=== PATIENT | male | born 1975 | race Two or more races ===

== ENCOUNTER 2021-04-24 13:34 | Outpatient (REF) | payer OTHER, SELFPAY ==
--- NOTE | ~2021-04-24 | XR_ITS ---
EXAMINATION: XR FOOT, RIGHT CLINICAL INFORMATION: Pain of toes. COMPARISON: None TECHNIQUE: AP, lateral, and oblique views of the right foot. FINDINGS: The bones and soft tissues are normal. No fracture. Alignment is anatomic. Joint spaces are maintained. XR/XR foot RT min 3V IMPRESSION: Normal right foot.
== END 2021-04-24 13:35 | disposition home or self-care (01) ==
LOC: HO.XRAY 13:34
PROVIDERS: Absent Provider Family Medicine; PCP Family Medicine; Visit Provider Emergency Medicine
DX: M79.674 Pain in right toe(s) (principal)
CPT/HCPCS: 73630

== ENCOUNTER → 2021-06-01 12:47 | Outpatient (BNVA) | payer OTHER, SELFPAY | PROVIDERS: PCP Family Medicine; Visit Provider Physician Assistant | DX: S61.214A Laceration without foreign body of right ring finger without damage to nail, initial encounter (principal); W25.XXXA Contact with sharp glass, initial encounter; Z77.21 Contact with and (suspected) exposure to potentially hazardous body fluids | CPT/HCPCS: 36415; 84450; 84460; 86706; 86803; 87389; 99213 ==

== ENCOUNTER 2021-12-19 13:00 | Outpatient (RCR) | payer OTHER, SELFPAY | END 2022-03-29 14:08 | disposition home or self-care (01) | LOC: HO.PTCHIC 13:00 | PROVIDERS: PCP Family Medicine; Visit Provider Emergency Medicine | DX: M54.50 Low back pain, unspecified (principal) | CPT/HCPCS: 97014; 97110; 97140; 97161 ==

== ENCOUNTER 2022-04-22 13:09 | Outpatient (REF) | payer OTHER, SELFPAY ==
--- NOTE | ~2022-04-22 | XR_ITS ---
EXAMINATION: XR HIP, RIGHT CLINICAL INFORMATION: Right hip pain COMPARISON: None TECHNIQUE: Two views of the right hip. FINDINGS: Bones and soft tissues are normal. No fracture. Alignment is anatomic. Hip joint space is maintained. XR/XR hip RT w PEL1V IMPRESSION: Normal right hip.
== END 2022-04-22 13:10 | disposition home or self-care (01) ==
LOC: HO.XRAY 13:09
PROVIDERS: PCP Family Medicine; Visit Provider Student in an Organized Health Care Education/Training Program
DX: M25.551 Pain in right hip (principal)
CPT/HCPCS: 73502

== ENCOUNTER 2024-04-28 20:21 | Emergency (ER) | payer SELFPAY ==
--- NOTE | ~2024-04-28 | US_ITS ---
EXAMINATION: US TRIPLEX LOWER EXTREMITY, LEFT CLINICAL INFORMATION: Left leg swelling COMPARISON: None available. TECHNIQUE: Color-flow triplex imaging with spectral analysis and compression Doppler were performed on the left lower extremity. FINDINGS: Respiratory variation, normal compression and augmented flow are noted throughout the left lower extremity. The visualized common femoral vein, superficial femoral vein, profunda femoral vein, popliteal vein and midcalf peroneal and posterior tibial venous segments show no evidence of deep venous thrombosis. There is no Garcia's cyst. Prominent inguinal lymph nodes. US/US venous duplex LE LT IMPRESSION: No evidence of deep venous thrombosis involving the left lower extremity. Electronically signed by: Michelle Reveles MD 04/28/2024 09:11 PM EDT
--- NOTE | ~2024-04-28 | XR_ITS ---
EXAMINATION: XR FOOT, LEFT X-ray tibia and fibula, left CLINICAL INFORMATION: Redness/swelling COMPARISON: None available. TECHNIQUE: AP, lateral, and oblique views of the left foot. 2 views of the left tibia and fibula FINDINGS: Well-corticated ossific fragments along the medial malleolus likely sequela of prior trauma. Ankle mortise is intact. No fracture. Alignment is anatomic. Joint spaces are maintained. Spurring in the patella. XR/XR tibia fibula LT 2V IMPRESSION: 1. No acute fracture. 2. Well-corticated ossific fragments along the medial malleolus likely sequela of prior trauma. Electronically signed by: Pa Paniagua MD 04/28/2024 10:30 PM EDT
--- NOTE | ~2024-04-28 | XR_ITS ---
EXAMINATION: XR FOOT, LEFT X-ray tibia and fibula, left CLINICAL INFORMATION: Redness/swelling COMPARISON: None available. TECHNIQUE: AP, lateral, and oblique views of the left foot. 2 views of the left tibia and fibula FINDINGS: Well-corticated ossific fragments along the medial malleolus likely sequela of prior trauma. Ankle mortise is intact. No fracture. Alignment is anatomic. Joint spaces are maintained. Spurring in the patella. XR/XR foot LT min 3V IMPRESSION: 1. No acute fracture. 2. Well-corticated ossific fragments along the medial malleolus likely sequela of prior trauma. Electronically signed by: Pa Paniagua MD 04/28/2024 10:30 PM EDT
[2024-04-28 20:26] VITALS: BP 139/76; PULSE 66; RESP 16; TEMP 36.8; O2SAT 99; BMI 32.3
--- NOTE | 2024-04-28 20:30 | ED_ITS ---
HPI - General Adult General Chief complaint: Extremity Injury, Lower Stated complaint: L leg pain Time Seen by Provider: 04/29/24 03:08 Source: patient and family Mode of arrival: ambulatory Limitations: no limitations History of Present Illness ED Provider: Dr. Griffith HPI narrative: Patient with 1 week of increasing leg pain and swelling. He denies trauma or fever. States that the leg is getting more and more red. Onset (ago): week(s) Related Data Previous Rx's ?Medication ?Instructions ?Recorded cephalexin 500 mg capsule 500 mg PO Q6H 10 days #40 caps 04/29/24 naproxen 500 mg tablet (Naprosyn) 500 mg PO BID #20 tabs 04/29/24 Allergies Allergy/AdvReac Type Severity Reaction Status Date / Time omeprazole [OMEPRAZOLE] AdvReac Intermediate GI PAIN, Verified 04/28/24 20:29 stomach pain Review of Systems 2 Review of Systems: Yes all other systems are reviewed and are negative Neurologic: Denies Sensory deficit (Neuro) [facility] Past Medical History Medical History No known health problems No known health problems No known health problems Social History Social History Alcohol intake: never Smoked in Last 30 Days: No Use of substances other than those prescribed or required for medical reasons: No Any prior treatment program specific to substance use: No Advance Directives: No Advance Directives Information Provided: No Do you have a plan to hurt others: No Plan Physical Exam ED Vital Signs: Vital Signs - 24 hr 04/28/24 20:26 04/29/24 03:03 04/29/24 03:52 Temperature 98.3 F 97.9 F 97.9 F Pulse Rate 66 69 69 Respiratory Rate 16 16 16 Blood Pressure 139/76 137/83 137/83 Pulse Oximetry 99 98 98 Oxygen Delivery Method Room Air Room Air Room Air BMI result Body Mass Index 32.3 Const General: healthy appearing Nutritional Appearance: average body habitus Orientation/consciousness: oriented to person and patient oriented x3 Limitations: no limitations HENMT Head: Yes normal to inspection Ears: external ears normal General nose exam: Normal external nose present Mouth: Normal oral and palatal mucosa present and oropharynx normal Throat: Yes posterior oropharynx normal Eyes General: appearance normal, both eyes and all related structures Neck Neck: Yes normal visual inspection Chest Chest palpation & inspection: normal inspection of the chest Resp Auscultation: clear to auscultation bilaterally Cardio Jugular venous distension: no JVD Rate: regular rate Rhythm: regular rhythm Heart sounds: S1 normal heart sound present and S2 normal heart sound present GI Inspection: Yes normal to inspection Palpation (GI): Soft to palpation, nontender and No hepatosplenomegaly present Auscultation: normal bowel sounds General: Yes no CVA tenderness Back/Spine/Pelvis Back: no CVA tenderness Skin General skin exam: no rashes or lesions noted Neuro General: oriented to person and patient oriented x3 Cranial nerves: Yes CN's II-XII intact bilaterally Motor exam (neuro): 5/5 motor strength present throughout Sensory Exam: No Sensory deficit (Neuro) Extrem Other: left leg with swelling and erythema and warmth. Good DP pulse Psych Appearance: grossly normal Course Course Course Narrative: RME: 49-year-old male presents to the ED for left leg foot swelling and redness for 1 week. Patient came to the ED today to be evaluated. Patient denies any much pain. Patient denies any recent long travel recent surgery. On exam positive for left lower extremity leg swelling redness with foot swelling. Labs ultrasound x-ray ordered. Medications Administered Discontinued Medications Generic Name Dose Route Start Last Admin Trade Name Freq PRN Reason Stop Dose Admin Cephalexin HCl 500 mg 04/29/24 03:28 04/29/24 03:42 Cephalexin 500 Mg Capsule PO 04/29/24 03:29 500 mg ONCE ONE Administration Ketorolac Tromethamine 60 mg 04/29/24 03:28 04/29/24 03:42 Ketorolac Tromethamine 60 Mg/2 Ml Vial IM 04/29/24 03:29 60 mg ONCE ONE Administration Medical Decision Making Differential Diagnosis Differential Diagnoses: The differential diagnosis associated with the presentation includes (DVT, cellulitis, thrombophlebitis) Admission/Observation Consideration of admission/observation: Escalation of care including admission/observation considered (upon arrival patient was considered for admission) Lab Data 04/28/24 21:19 04/28/24 21:19 Labs: Lab Results 04/28/24 Range/Units 21:19 WBC 8.6 (4.8-10.8) X10*3/uL RBC 5.32 (4.60-5.80) X10*6/uL Hgb 12.8 L (14.0-18.0) g/dl Hct 39.7 L (42.0-52.0) % MCV 74.6 L (80.0-98.0) fL MCH 24.1 L (27.0-33.0) pg MCHC 32.2 (31.0-36.0) g/dl RDW 14.2 (11.0-16.0) % Plt Count 248 (160-400) X10*3/uL MPV 11.2 (9.4-12.4) fL Immature Gran % (Auto) 0.2 (0.0-0.4) % Neut % (Auto) 54.5 (45-73) % Lymph % (Auto) 32.9 (20-40) % [place] % (Auto) 8.1 (2-11) % Eos % (Auto) 3.8 (0-4) % Baso % (Auto) 0.5 (0-2) % Lymph # (Auto) 2.8 (1.2-4.9) X10*3/uL [place] # (Auto) 0.7 (0.1-1.2) X10*3/uL Eos # (Auto) 0.3 (0.0-0.4) X10*3/uL Baso # (Auto) 0.0 (0.0-0.2) X10*3/uL Abs Immat Gran (auto) 0.02 (0.00-0.03) X10*3/uL Absolute Neuts (auto) 4.7 (2.0-8.3) x10*3/uL Absolute Nucleated RBC 0.000 (0.0-0.012) X10*3/uL Nucleated RBC % (auto) 0.0 (0.0-0.2) /100WBC ESR 11 (0-15) MM/HR PT 12.7 H (10.9-12.4) SEC INR 1.1 (0.9-1.1) APTT 32.4 (26.0-36.8) SEC Sodium 141 (135-145) mmol/L Potassium 4.1 (3.3-5.1) mmol/L Chloride 110 H (96-108) mmol/L Carbon Dioxide 23 (22-29) mmol/L Anion Gap 12 (12-20) BUN 17 H (9-16) mg/dL Creatinine 1.19 (0.5-1.4) mg/dL Estim Creat Clear Calc 88.8 Estimated GFR > 60 Random Glucose 97 (60-115) mg/dL Calcium 9.5 (8.4-10.2) mg/dL Total Bilirubin 0.5 (0.0-1.0) mg/dL AST 33 (5-37) U/L ALT 44 H (0-40) U/L Alkaline Phosphatase 72 (39-117) U/L C-Reactive Protein 0.87 H (< or = 0.50) mg/dL Total Protein 7.7 (6.5-8.0) g/dL Albumin 4.3 (3.5-5.0) g/dL Independent Interpretation I performed an independent interpretation of an: Plain X-Ray (tibia: old fracture of ankle, no acute fracture) Radiology Impression Discussion of test interpretation with radiology: I have reviewed the radiologist's reading. (US: no DVT reviewed and agree) Independent Historian Clinical information obtained from an independent historian. History obtained from or confirmed by: Spouse Discharge Plan Discharge Clinical Impression: Cellulitis Patient Disposition: Home, Self-Care Instructions: Cellulitis (ED) Prescriptions: New cephalexin 500 mg capsule 500 mg PO Q6H 10 Days Qty: 40 0RF naproxen [Naprosyn] 500 mg tablet 500 mg PO BID Qty: 20 0RF Referrals: Physician,None [Primary Care Provider] - 5 days Stand Alone Forms: Work/School Release Interventions: ED Discharge Assessment Last Done: 04/29/24 03:52 Discharge Date/Time: 04/29/24 03:53 Print Language: Nepali
[2024-04-28 21:25] LABS: Basophils Percent Auto 0.5 % (0-2); Eosinophils Absolute Auto 0.3 X10*3/uL (0.0-0.4); Eosinophils Percent Auto 3.8 % (0-4); Hematocrit 39.7 % (42.0-52.0); Hemoglobin 12.8 g/dl (14.0-18.0); Imm Gran Abs Auto 0.02 X10*3/uL (0.00-0.03); Imm Gran Pct Auto 0.2 % (0.0-0.4); Lymphocytes Absolute Auto 2.8 X10*3/uL (1.2-4.9); Lymphocytes Percent Auto 32.9 % (20-40); MANUAL DIFF FLAG NO; Mean Corpuscular HGB Conc 32.2 g/dl (31.0-36.0); Mean Corpuscular Hemoglobin 24.1 pg (27.0-33.0); Mean Corpuscular Volume 74.6 fL (80.0-98.0); Mean Platelet Volume 11.2 fL (9.4-12.4); Monocytes Absolute Auto 0.7 X10*3/uL (0.1-1.2); Monocytes Percent Auto 8.1 % (2-11); Neutrophils Absolute Auto 4.7 x10*3/uL (2.0-8.3); Neutrophils Percent Auto 54.5 % (45-73); Platelet Count 248 X10*3/uL (160-400); Red Blood Count 5.32 X10*6/uL (4.60-5.80); Red Cell Distribution Width 14.2 % (11.0-16.0); White Blood Count 8.6 X10*3/uL (4.8-10.8)
[2024-04-28 21:39] LABS: Alanine Aminotransferase 44 U/L (0-40); Albumin Level 4.3 g/dL (3.5-5.0); Alkaline Phosphatase 72 U/L (39-117); Anion Gap 12 (12-20); Aspartate Amino Transferase 33 U/L (5-37); Bilirubin Total 0.5 mg/dL (0.0-1.0); Blood Urea Nitrogen 17 mg/dL (9-16); C Reactive Protein 0.87 mg/dL (< or = 0.50); Calcium 9.5 mg/dL (8.4-10.2); Carbon Dioxide 23 mmol/L (22-29); Chloride 110 mmol/L (96-108); Creatinine Clr Calc Pharmacy 88.8; Estimated Glomerular Filt Rate > 60; Glucose Random 97 mg/dL (60-115); INTERNATIONAL NORM RATIO 1.1 (0.9-1.1); Potassium 4.1 mmol/L (3.3-5.1); Prothrombin Time 12.7 SEC (10.9-12.4); Sodium 141 mmol/L (135-145); Total Protein 7.7 g/dL (6.5-8.0)
[2024-04-28 21:42] LABS: Partial Thromboplastin Time 32.4 SEC (26.0-36.8)
[2024-04-28 22:15] LABS: Erythrocyte Sedimentation Rate 11 MM/HR (0-15)
[2024-04-29 03:03] VITALS: BP 137/83; PULSE 69; RESP 16; TEMP 36.6; O2SAT 98
[2024-04-29] MEDS: Ketorolac Tromethamine 60 MG/2 ML VIAL IM (03:42)
[2024-04-29] MEDS: cephALEXin 500 MG CAPSULE PO (03:42)
[2024-04-29 03:52] VITALS: BP 137/83; PULSE 69; RESP 16; TEMP 36.6; O2SAT 98
== END 2024-04-29 03:53 | disposition home or self-care (01) ==
PROVIDERS: Physician Assistant; Emergency Provider Emergency Medicine
DX: L03.116 Cellulitis of left lower limb (principal); M79.605 Pain in left leg; M79.89 Other specified soft tissue disorders
CPT/HCPCS: 36415; 73590; 73630; 80053; 85025; 85610; 85652; 85730; 86140; 93971; 96372; 99284; J1885

== ENCOUNTER 2024-05-16 17:08 | Emergency (ER) | payer OTHER, SELFPAY ==
--- NOTE | ~2024-05-16 | US_ITS ---
EXAMINATION: US TRIPLEX LOWER EXTREMITY, LEFT CLINICAL INFORMATION: Left leg pain COMPARISON: Left lower extremity Doppler venous ultrasound of 04/28/2024 TECHNIQUE: Color-flow triplex imaging with spectral analysis and compression Doppler were performed on the left lower extremity. FINDINGS: Respiratory variation, normal compression and augmented flow are noted throughout the left lower extremity. The visualized common femoral vein, superficial femoral vein, profunda femoral vein, popliteal vein and midcalf peroneal and posterior tibial venous segments show no evidence of deep venous thrombosis. Imaged contralateral common femoral vein demonstrates normal respiratory variation and is patent and compressible. There is no Garcia's cyst. An elongated however sonographically normal-appearing left inguinal lymph node is noted measuring 2.5 x 0.9 x 1.5 cm. US/US venous duplex LE LT IMPRESSION: No evidence of deep venous thrombosis involving the left lower extremity. Electronically signed by: Liam Jaffe MD 05/16/2024 07:04 PM [facility]
--- NOTE | ~2024-05-16 | XR_ITS ---
EXAMINATION: LEFT TIBIA AND FIBULA, LEFT ANKLE, LEFT FOOT CLINICAL INFORMATION: Swelling, redness and pain with question of osteomyelitis COMPARISON: Left tibia and fibula along with left foot 04/28/2024 TECHNIQUE: 2 views tibia and fibula, 3 views ankle, 3 views foot FINDINGS: There is soft tissue swelling medially at the ankle with multiple corticated density seen at the tip of the medial malleolus, unchanged from prior. A small ankle joint effusion could be present. The tibia and fibula otherwise appear normal. Ankle mortise appears stable. No bone or joint abnormality is seen in the foot. XR/XR foot LT 2V IMPRESSION: Soft tissue swelling medially at the ankle with possible small ankle joint effusion. No evidence of osteomyelitis. Well-corticated osseous fragments at the tip of the medial malleolus unchanged, likely the sequela of remote trauma. Electronically signed by: Freddy Espinoza MD 05/16/2024 07:04 PM [facility]
--- NOTE | ~2024-05-16 | XR_ITS ---
EXAMINATION: LEFT TIBIA AND FIBULA, LEFT ANKLE, LEFT FOOT CLINICAL INFORMATION: Swelling, redness and pain with question of osteomyelitis COMPARISON: Left tibia and fibula along with left foot 04/28/2024 TECHNIQUE: 2 views tibia and fibula, 3 views ankle, 3 views foot FINDINGS: There is soft tissue swelling medially at the ankle with multiple corticated density seen at the tip of the medial malleolus, unchanged from prior. A small ankle joint effusion could be present. The tibia and fibula otherwise appear normal. Ankle mortise appears stable. No bone or joint abnormality is seen in the foot. XR/XR ankle LT min 3V IMPRESSION: Soft tissue swelling medially at the ankle with possible small ankle joint effusion. No evidence of osteomyelitis. Well-corticated osseous fragments at the tip of the medial malleolus unchanged, likely the sequela of remote trauma. Electronically signed by: Freddy Espinoza MD 05/16/2024 07:04 PM [facility] [place]
--- NOTE | ~2024-05-16 | XR_ITS ---
EXAMINATION: LEFT TIBIA AND FIBULA, LEFT ANKLE, LEFT FOOT CLINICAL INFORMATION: Swelling, redness and pain with question of osteomyelitis COMPARISON: Left tibia and fibula along with left foot 04/28/2024 TECHNIQUE: 2 views tibia and fibula, 3 views ankle, 3 views foot FINDINGS: There is soft tissue swelling medially at the ankle with multiple corticated density seen at the tip of the medial malleolus, unchanged from prior. A small ankle joint effusion could be present. The tibia and fibula otherwise appear normal. Ankle mortise appears stable. No bone or joint abnormality is seen in the foot. XR/XR tibia fibula LT 2V IMPRESSION: Soft tissue swelling medially at the ankle with possible small ankle joint effusion. No evidence of osteomyelitis. Well-corticated osseous fragments at the tip of the medial malleolus unchanged, likely the sequela of remote trauma. Electronically signed by: Freddy Espinoza MD 05/16/2024 07:04 PM [facility]
[2024-05-16 17:16] VITALS: BP 140/82; PULSE 75; RESP 18; TEMP 36.6; O2SAT 99; BMI 31.6
--- NOTE | 2024-05-16 17:22 | ED.GENADULT ---
HPI - General Adult General Chief complaint: Extremity Injury, Lower Stated complaint: LT leg pain, infection? Time Seen by Provider: 05/16/24 18:02 Source: patient Limitations: no limitations History of Present Illness ED Provider: Franny simental PA-C HPI narrative: 49-year-old otherwise healthy male presents with left ankle pain and swelling. Patient states he was treated for cellulitis of the left lower extremity April 28. His symptoms improved. Over the past few days, the pain and swelling returned, it is most focal over the medial ankle. Patient states he sustained a significant sprain of the left ankle 20 years ago. No other recent trauma. Patient is active and on his feet all day while at work. Denies inability to flex and extend the ankle, no fevers. No history of gout. Related Data Previous Rx's ?Medication ?Instructions ?Recorded cephalexin 500 mg capsule 500 mg PO Q6H 10 days #40 caps 04/29/24 naproxen 500 mg tablet (Naprosyn) 500 mg PO BID #20 tabs 04/29/24 meloxicam 15 mg tablet 15 mg PO DAILY #7 tabs 05/16/24 oxycodone 5 mg tablet 5 mg PO Q8H PRN pain #7 tabs 05/16/24 Allergies Allergy/AdvReac Type Severity Reaction Status Date / Time omeprazole [OMEPRAZOLE] AdvReac Intermediate GI PAIN, Verified 05/16/24 17:20 stomach pain Review of Systems Review of Systems: Yes all other systems are reviewed and are negative Constitutional: Constitutional: Denies fatigue and Denies fever(s) Cardiovascular: Cardiovascular: Denies chest pain and Denies dyspnea Respiratory: Respiratory: Denies dyspnea Musculoskeletal: Musculoskeletal: Reports arthralgias and Reports joint swelling Integumentary/Breasts: Skin/Breast: Reports erythema Endocrine: Endocrine: Denies fatigue PMFSH Past Medical History Attestation statement: The following information was validated with the patient. Medical History No known health problems No known health problems No known health problems Social History Social History Alcohol intake: current Alcohol intake frequency: a few times a week Alcohol type: beer and wine Smoked in Last 30 Days: No Use of substances other than those prescribed or required for medical reasons: No Any prior treatment program specific to substance use: No Advance Directives: No Advance Directives Information Provided: No Do you have a plan to hurt others: No Plan Physical Exam ED Vital Signs: Vital Signs - 24 hr 05/16/24 17:16 05/16/24 20:04 Temperature 98 F 98.4 F Pulse Rate 75 73 Respiratory Rate 18 16 Blood Pressure 140/82 H 131/79 Pulse Oximetry 99 100 Oxygen Delivery Method Room Air Room Air BMI result Body Mass Index 31.6 Const Other: Alert, well-appearing Orientation/consciousness: patient oriented x3 Resp Other: Nonlabored respirations Skin Other: Warm dry no rash Neuro General: patient oriented x3, no focal motor deficits and CN's II-XI intact bilaterally Extrem Other: Focal swelling over medial left ankle, patient is able to dorsiflex and plantar flex, the joint mildly erythematous /warm Psych Other: Calm cooperative Course Course Course Narrative: RME: 49-year-old male recent history of cellulitis presents to ED for recurrent left leg swelling redness and some pain. Patient denies any trauma. Left leg more swollen than right with slight redness and ankle tenderness. Ultrasound x-ray labs ordered Medications Administered Discontinued Medications Generic Name Dose Route Start Last Admin Trade Name Freq PRN Reason Stop Dose Admin Ketorolac Tromethamine 15 mg 05/16/24 19:46 05/16/24 20:05 Ketorolac Tromethamine 15 Mg/Ml Vial IM 05/16/24 19:47 15 mg ONCE ONE Administration Oxycodone HCl 5 mg 05/16/24 19:46 05/16/24 20:05 Oxycodone Hcl Immed Release 5 Mg Tablet PO 05/16/24 19:47 5 mg ONCE ONE Administration Medical Decision Making Medical Decision Making [facility] Narrative: 49-year-old otherwise healthy male presents with left ankle pain and swelling. Patient states he was treated for cellulitis of the left lower extremity April 28. His symptoms improved. Over the past few days, the pain and swelling returned, it is most focal over the medial ankle. Patient states he sustained a significant sprain of the left ankle 20 years ago. No other recent trauma. Patient is active and on his feet all day while at work. Denies inability to flex and extend the ankle, no fevers. No history of gout. Problem: Prior ankle injury History: Per patient I have considered the following differential diagnoses: Gout, septic joint, cellulitis, DVT, fracture, sprain, dislocation, arthritis Plan: Screening labs including inflammatory markers, x-ray and DVT study obtained from triage. The patient has fragments within the joint, likely from his prior injury 20 years prior, this is causing inflammation and a small effusion. The patient has retained range of motion, this is not a septic effusion. Furthermore his inflammatory markers were negative. And he also has no leukocytosis. We will treat accordingly, he can follow up with Ortho, he will likely require a steroid joint injection. I have independently reviewed the following tests: Labs: No leukocytosis, not anemic, inflammatory markers are not elevated, Ultrasound left lower extremity: US/US venous duplex LE LT IMPRESSION: No evidence of deep venous thrombosis involving the left lower extremity. Electronically signed by: Liam Jaffe MD 05/16/2024 07:04 PM [employer] RP X-ray left foot, tib/fib, ankle: XR/XR ankle LT min 3V IMPRESSION: Soft tissue swelling medially at the ankle with possible small ankle joint effusion. No evidence of osteomyelitis. Well-corticated osseous fragments at the tip of the medial malleolus unchanged, likely the sequela of remote trauma. Electronically signed by: Freddy Espinoza MD 05/16/2024 07:04 PM EST RP Lab Data 05/16/24 17:27 05/16/24 17:27 Labs: Lab Results 05/16/24 Range/Units 17:27 WBC 10.2 (4.8-10.8) X10*3/uL RBC 6.22 H (4.60-5.80) X10*6/uL Hgb 14.7 (14.0-18.0) g/dl Hct 47.0 (42.0-52.0) % MCV 75.6 L (80.0-98.0) fL MCH 23.6 L (27.0-33.0) pg MCHC 31.3 (31.0-36.0) g/dl RDW 15.0 (11.0-16.0) % Plt Count 258 (160-400) X10*3/uL MPV 11.1 (9.4-12.4) fL Immature Gran % (Auto) 0.2 (0.0-0.4) % Neut % (Auto) 56.6 (45-73) % Lymph % (Auto) 30.1 (20-40) % [place] % (Auto) 8.4 (2-11) % Eos % (Auto) 4.3 H (0-4) % Baso % (Auto) 0.4 (0-2) % Lymph # (Auto) 3.1 (1.2-4.9) X10*3/uL [place] # (Auto) 0.9 (0.1-1.2) X10*3/uL Eos # (Auto) 0.4 (0.0-0.4) X10*3/uL Baso # (Auto) 0.0 (0.0-0.2) X10*3/uL Abs Immat Gran (auto) 0.02 (0.00-0.03) X10*3/uL Absolute Neuts (auto) 5.7 (2.0-8.3) x10*3/uL Absolute Nucleated RBC 0.000 (0.0-0.012) X10*3/uL Nucleated RBC % (auto) 0.0 (0.0-0.2) /100WBC ESR 5 (0-15) MM/HR PT 12.5 H (10.9-12.4) SEC INR 1.1 (0.9-1.1) APTT 33.1 (26.0-36.8) SEC Sodium 143 (135-145) mmol/L Potassium 3.8 (3.3-5.1) mmol/L Chloride 113 H (96-108) mmol/L Carbon Dioxide 21 L (22-29) mmol/L Anion Gap 13 (12-20) BUN 11 (9-16) mg/dL Creatinine 0.79 (0.5-1.4) mg/dL Estim Creat Clear Calc 132.5 Estimated GFR > 60 Random Glucose 92 (60-115) mg/dL Calcium 9.0 (8.4-10.2) mg/dL Total Bilirubin 0.5 (0.0-1.0) mg/dL AST 22 (5-37) U/L ALT 46 H (0-40) U/L Alkaline Phosphatase 85 (39-117) U/L C-Reactive Protein 0.35 (< or = 0.50) mg/dL Total Protein 8.1 H (6.5-8.0) g/dL Albumin 4.4 (3.5-5.0) g/dL Discharge Plan Discharge Clinical Impression: Effusion of ankle joint, left Patient Disposition: Home, Self-Care Instructions: Swollen Ankle Joint (ED) Additional Instructions: All of your labs including inflammatory markers were completely normal. The x-rays revealed no fracture within the left leg, however you were noted to have significant inflammation within the ankle joint related to bone fragments from your prior severe ankle sprain. See home care instructions. Use the walking boot as needed to help support the joint, bear weight as tolerated, you may still require the use of your crutches. Take the meloxicam, this is an anti-inflammatory, as directed. Take it with food. Use the oxycodone for severe pain. I am providing you with a contact for the orthopedic service, I foresee you having a cortisone joint injection in the future. Follow up with your primary care provider as needed. [facility] they have an associated urgent care/walk-in clinic. [address] [place] [phone] Prescriptions: New meloxicam 15 mg tablet 15 mg PO DAILY Qty: 7 0RF oxycodone 5 mg tablet 5 mg PO Q8H PRN (Reason: pain) Qty: 7 0RF Rx Instructions: Partial Fill upon patient request. No Action cephalexin 500 mg capsule 500 mg PO Q6H 10 Days Qty: 40 0RF naproxen [Naprosyn] 500 mg tablet 500 mg PO BID Qty: 20 0RF Stand Alone Forms: Work/School Release Print Language: Palauan
[2024-05-16 17:37] LABS: MANUAL DIFF FLAG NO
[2024-05-16 17:40] LABS: Basophils Percent Auto 0.4 % (0-2); Eosinophils Absolute Auto 0.4 X10*3/uL (0.0-0.4); Eosinophils Percent Auto 4.3 % (0-4); Hemoglobin 14.7 g/dl (14.0-18.0); Imm Gran Abs Auto 0.02 X10*3/uL (0.00-0.03); Imm Gran Pct Auto 0.2 % (0.0-0.4); Lymphocytes Absolute Auto 3.1 X10*3/uL (1.2-4.9); Lymphocytes Percent Auto 30.1 % (20-40); Mean Corpuscular HGB Conc 31.3 g/dl (31.0-36.0); Mean Corpuscular Hemoglobin 23.6 pg (27.0-33.0); Mean Corpuscular Volume 75.6 fL (80.0-98.0); Mean Platelet Volume 11.1 fL (9.4-12.4); Monocytes Absolute Auto 0.9 X10*3/uL (0.1-1.2); Monocytes Percent Auto 8.4 % (2-11); Neutrophils Absolute Auto 5.7 x10*3/uL (2.0-8.3); Neutrophils Percent Auto 56.6 % (45-73); Platelet Count 258 X10*3/uL (160-400); Red Blood Count 6.22 X10*6/uL (4.60-5.80); White Blood Count 10.2 X10*3/uL (4.8-10.8)
[2024-05-16 17:47] LABS: INTERNATIONAL NORM RATIO 1.1 (0.9-1.1); Prothrombin Time 12.5 SEC (10.9-12.4)
[2024-05-16 17:50] LABS: Partial Thromboplastin Time 33.1 SEC (26.0-36.8)
[2024-05-16 17:57] LABS: Alanine Aminotransferase 46 U/L (0-40); Albumin Level 4.4 g/dL (3.5-5.0); Alkaline Phosphatase 85 U/L (39-117); Anion Gap 13 (12-20); Aspartate Amino Transferase 22 U/L (5-37); Bilirubin Total 0.5 mg/dL (0.0-1.0); Blood Urea Nitrogen 11 mg/dL (9-16); C Reactive Protein 0.35 mg/dL (< or = 0.50); Carbon Dioxide 21 mmol/L (22-29); Chloride 113 mmol/L (96-108); Creatinine Clr Calc Pharmacy 132.5; Estimated Glomerular Filt Rate > 60; Glucose Random 92 mg/dL (60-115); Potassium 3.8 mmol/L (3.3-5.1); Sodium 143 mmol/L (135-145); Total Protein 8.1 g/dL (6.5-8.0)
[2024-05-16 18:26] LABS: Erythrocyte Sedimentation Rate 5 MM/HR (0-15)
[2024-05-16 20:04] VITALS: BP 131/79; PULSE 73; RESP 16; TEMP 36.9; O2SAT 100
[2024-05-16] MEDS: Ketorolac Tromethamine 15 MG/ML VIAL IM (20:05)
[2024-05-16] MEDS: oxyCODONE HCl Immed Release 5 MG TABLET PO (20:05)
[2024-05-16 21:02] VITALS: BP 131/79; PULSE 73; RESP 16; TEMP 36.9; O2SAT 98
== END 2024-05-16 21:04 | disposition home or self-care (01) ==
PROVIDERS: Physician Assistant; Emergency Provider Emergency Medicine Emergency Medical Services
DX: M25.472 Effusion, left ankle (principal); R60.0 Localized edema; M25.572 Pain in left ankle and joints of left foot; M79.672 Pain in left foot; Z51.81 Encounter for therapeutic drug level monitoring; Z79.899 Other long term (current) drug therapy
CPT/HCPCS: 36415; 73590; 73610; 73620; 80053; 85025; 85610; 85652; 85730; 86140; 93971; 96372; 99284; J1885